=== PATIENT | female | born 1990 | race Two or more races ===

== ENCOUNTER 2018-02-22 16:17 | Emergency (ER) | payer BC ==
[~2018-02-22] VITALS: Ht 167.6 cm; Wt 106.0 kg
[~2018-02-22 16:17] MED LIST: CIPR5DRO LEFTEYE; HYDR-569 PO; METF500T PO; NO HOME MEDS
[2018-02-22 18:02] VITALS: BP 143/102
[2018-02-22] MEDS ORDERED: ketorolac trometh inj. 60 MG/2 ML VIAL IM ONE (18:45)
== END 2018-02-22 19:12 | disposition home or self-care (01) ==
LOC: ER 16:18
DX: H02.846 Edema of left eye, unspecified eyelid (principal); E11.9 Type 2 diabetes mellitus without complications; Z79.2 Long term (current) use of antibiotics; Z79.84 Long term (current) use of oral hypoglycemic drugs
CPT/HCPCS: 96372; 99283; J1885

== ENCOUNTER 2022-09-03 10:03 | Emergency (ER) | payer MEDICAID ==
[~2022-09-03] VITALS: Ht 167.6 cm; Wt 102.0 kg
[~2022-09-03 10:03] MED LIST changes: +HYDR-4383 PO; -HYDR-569 PO
[2022-09-03 10:15] VITALS: BP 133/90
[2022-09-03] MEDS ORDERED: HYDROcodone/acetaminophen 5mg/325mg tablet PO ONE (11:15)
[2022-09-03] MEDS ORDERED: ketorolac trometh inj. 60 MG/2 ML VIAL IM ONE (11:15)
[2022-09-03] MEDS ORDERED: HYDR-3965 PO (11:16)
== END 2022-09-03 11:33 | disposition home or self-care (01) ==
LOC: ER 10:03
DX: M25.562 Pain in left knee (principal); E11.9 Type 2 diabetes mellitus without complications; Z79.2 Long term (current) use of antibiotics; Z79.899 Other long term (current) drug therapy
CPT/HCPCS: 96372; 99283; J1885

== ENCOUNTER 2023-01-22 14:14 | Emergency (ER) | payer MEDICAID | END 2023-01-22 14:25 | disposition left against medical advice (07) | LOC: ER 14:14 | DX: O26.899 Other specified pregnancy related conditions, unspecified trimester (principal); Z53.21 Procedure and treatment not carried out due to patient leaving prior to being seen by health care provider ==

== ENCOUNTER → 2023-08-13 | Emergency (ER) | payer MEDICAID ==
[~2023-08-13] VITALS: Ht 167.6 cm; Wt 103.6 kg
[~2023-08-13] MED LIST changes: +NAPR-56 PO; +ketorolac trometh. 30mg/ml inj. IM ONE; +ketorolac tromethamine 15mg/ml inj. IM ONE
[2023-08-13 11:07] VITALS: BP 124/84; PULSE 138; TEMP 98.3; O2SAT 98
[2023-08-13 12:28] VITALS: RESP 17
== END | disposition home or self-care (01) ==
LOC: ER 10:58
DX: S83.8X2A Sprain of other specified parts of left knee, initial encounter (principal); X58.XXXA Exposure to other specified factors, initial encounter; Y93.89 Activity, other specified; Y92.89 Other specified places as the place of occurrence of the external cause; Y99.8 Other external cause status
CPT/HCPCS: 73564; 93005; 96372; 99283; J1885; A6449

== ENCOUNTER 2023-08-19 17:03 | Emergency (ER) | payer MEDICAID ==
[~2023-08-19] VITALS: Ht 170.2 cm; Wt 102.3 kg
[~2023-08-19 17:03] MED LIST changes: -ketorolac trometh. 30mg/ml inj. IM ONE; -ketorolac tromethamine 15mg/ml inj. IM ONE
[2023-08-19 17:07] VITALS: TEMP 98
[2023-08-19] MEDS ORDERED: HYDROcodone/acetaminophen 10/325mg tab PO ONE (19:30)
[2023-08-19] MEDS ORDERED: HYDR-3965 PO (19:33)
[2023-08-19 19:53] VITALS: BP 103/79; PULSE 108; RESP 16; O2SAT 97
== END 2023-08-19 19:55 | disposition home or self-care (01) ==
LOC: ER 17:03
DX: M25.562 Pain in left knee (principal); M25.462 Effusion, left knee; E11.9 Type 2 diabetes mellitus without complications; Z79.2 Long term (current) use of antibiotics; Z79.899 Other long term (current) drug therapy
CPT/HCPCS: 93971; 99284

== ENCOUNTER 2025-01-05 09:36 | Emergency (ER) | payer MEDICAID ==
[~2025-01-05] VITALS: Ht 167.6 cm; Wt 102.2 kg
[~2025-01-05 09:36] MED LIST changes: -NAPR-56 PO
[2025-01-05 09:41] VITALS: BP 118/80; PULSE 118; RESP 16; O2SAT 98
[2025-01-05 10:45] LABS: STREP A SCREEN NEGATIVE (Neg)
--- NOTE | 2025-01-05 12:31 | RADIOLOGY REPORT ---
DI CHEST,SINGLE VIEW, HISTORY: cough COMPARISON: None None TECHNICAL DATA: 1 view of the chest was obtained. FINDINGS: Lines and tubes: None Cardiomediastinal silhouette: normal Pulmonary vasculature: normal Lung expansion: normal Lung airspace: normal Lung interstitium: normal Pleura: normal Pneumothorax: no Bones: Unremarkable Other: no IMPRESSION: No acute intrathoracic abnormality.
--- NOTE | 2025-01-05 13:49 | Physician Documentation ---
History of Present Illness ~ Chief Complaint: Flu Symptoms Stated Complaint: FEVER/EAR ACHE Time Seen by MD: 12:07 Primary Medical Doctor: [facility] HPI 34-year-old female reports a chief complaint of sore throat and ear pain. Patient states he has been having pain for proximally five days. Endorses nausea as well. Denies chills. Currently not take any medications therapy has been in symptoms. Patient denies productive cough. No other complaints at this time Medication Reconciliation Allergies: Coded Allergies: No Known Allergies (Unverified , 08/13/23) Scheduled Ciprofloxacin HCl (Ciloxan), 1 DROP LEFTEYE QID Hydrocodone/Acetaminophen ([place] 5-325 Tablet), 1 TABLET PO BID Metformin Hcl* (Glucophage*), 1,000 MG PO BID Miscellaneous Medications Home Med List (No Home Medications), (Reported) Past Medical History Past Medical History: Diabetes Past Surgical History: no surgical history Alcohol Use: None Drug Use: none Lives with: Mother, Father Lives In: Home Occupation: student Physical Exam Vital Signs: Temperature: 98.5, Source: Oral, Heart Rate: 118, Respiratory Rate: 16, BP: 118/80, Pulse Oximetry: 98, Weight: 102.200 Physical Exam General: Well developed, well nourished, no distress. HEENT: Positive for 2+ edema to bilateral tonsils. Positive for exudates. Positive for posterior pharynx erythema. Uvula is midline negative for edema. Positive for LAD bilaterally. Neck: Full range of motion, supple. Respiratory: Lungs clear, no respiratory distress. Chest: No accessory muscle use, nontender. Cardiovascular: Regular rate and rhythm. Gastrointestinal: Soft, nontender, nondistended. Bowel sounds present. Extremities: Normal range of motion, nontender, normal capillary refill, no deformity. Back: No midline tenderness, no CVA tenderness. Neurologic: Oriented x4. Distal gross motor and sensory intact all four extremities. Moves all 4 extremities spontaneously. Psychiatric: Normal mood and affect. Skin: Normal color, warm and dry. No edema, no ecchymosis Progress Results/Orders Results/Orders Orders - ROBB SNEED Chest,Single View (01/05/25 12:13) Completed Orders - ROBB SNEED Chest,Single View (01/05/25 12:13) Vital Signs 01/05/25 09:41 Temp 98.5 Pulse 118 Resp 16 B/P (MAP) 118/80 Pulse Ox 98 Laboratory Tests Test 01/05/25 09:46 Group A Streptococcus Rapid Negative Medical Decision Making Additional info obtained from: old records Findings After detailed discussion and joint medical decision-making, diagnostic and imaging results were discussed with the patient. At this time patient he is negative for strep, however clinically patient does have symptoms consistent with strep pharyngitis the patient is given Augmentin medication for pain. Patient advised to follow up primary care. ER precautions were given. Patient is stable upon discharge. All patient questions answered to satisfaction Differential Dx:Considerations: Include: Other (Pneumonia, sepsis, viral pharyngitis, strep pharyngitis) Departure Disposition: HOME / SELF CARE / HOMELESS Impression: Primary Impression: Tonsillitis Condition: Stable Discharge Instructions: Strep Throat, Adult, [id number] Referrals: NO PRIMARY CARE PROVIDER (PCP) Prescriptions Hydrocodone Bit/Acetaminophen (Hydrocodone-Apap 10-325 Tablet) 10mg/325mg Tablet 1 TAB PO QID PRN PRN for pain for 5 Days, #20 TAB Prov: ROBB SNEED 01/05/25 Amox Tr/Potassium Clavulanate 875/125 MG (Augmentin 875/125 MG) 875 Mg-125 Mg Tablet 1 TAB PO Q12H for 10 Days, #20 TAB Prov: ROBB SNEED 01/05/25 Education Educated: Patient Educated regarding: diagnosis, treatment Signature Scribe Signature: none used Attestation: Scribed for Robb Sneed by Robb LATHAM . 01/05/25 13:56 ROBB SNEED January 05, 2025 13:49
[2025-01-05] MEDS ORDERED: HYDR-3973 PO (13:54)
[2025-01-05] MEDS ORDERED: AMOX-580 PO (13:54)
[2025-01-05 13:59] VITALS: TEMP 98.5
== END 2025-01-05 14:01 | disposition home or self-care (01) ==
LOC: ER 09:37
DX: J03.90 Acute tonsillitis, unspecified (principal); E11.9 Type 2 diabetes mellitus without complications; Z79.899 Other long term (current) drug therapy
CPT/HCPCS: 71045; 87081; 87880; 99284